=== PATIENT | female | born 1990 | race Caucasian/White ===

== ENCOUNTER → 2017-06-05 10:18 | Outpatient (CLI) | payer OTHER, SELFPAY | PROVIDERS: Visit Provider Obstetrics & Gynecology | DX: D75.89 Other specified diseases of blood and blood-forming organs (principal); R00.0 Tachycardia, unspecified | CPT/HCPCS: 36415; 83090 ==

== ENCOUNTER → 2017-07-17 10:17 | Outpatient (CLI) | payer OTHER, SELFPAY ==
[2017-07-17 12:59] LABS: Group B Strep DNA By PCR POSITIVE (Negative); Probe Check PASS
== END ==
PROVIDERS: Visit Provider Obstetrics & Gynecology
DX: Z36.85 Encounter for antenatal screening for Streptococcus B (principal)
CPT/HCPCS: 87653

== ENCOUNTER 2017-07-25 05:10 | Inpatient (IN) | payer SELFPAY ==
[2017-07-25] VITALS (21 sets, daily range): BP systolic 110–137; BP diastolic 66–92; PULSE 76–95; RESP 14–24; TEMP 36–37.3; O2SAT 95–99; BMI 23.1
[2017-07-25] MEDS: Lactated Ringers 1,000 ML 999 ML IV (05:35)
[2017-07-25 06:24] LABS: International Normalized Ratio 0.9; Prothrombin Time (Protime)PT. 12.5 SECONDS (11.7-14.9)
[2017-07-25 06:25] LABS: Partial Thromboplast Time 27.5 Seconds (24.1-36.2)
[2017-07-25 06:27] LABS: Absolute Lymphocyte Count 1.84 X10^3/ul (0.83-4.51); Absolute Neutrophil Count 8.3 X10^3/uL (2.0-7.7); Basophil# 0.01 X10^3/uL; Basophil% 0.1 % (0-1); Eosinophil# 0.18 X10^3/uL; Eosinophils% 1.6 % (0-5); Hematocrit 40.3 % (37-47); Hemoglobin 13.8 g/dl (12.0-15.0); Lymphocyte # 1.84 X10^3/ul (4.0); Lymphocyte % 16.5 % (19-41); Mean Corp Hgb Conc 34.2 g/gl (32-36); Mean Corpuscular Hgb 34.6 pg (27.0-32.0); Monocyte# 0.78 X10^3/uL; Neutrophil # 8.32 X10^3/uL (2.7-7.7); Neutrophil % 74.4 % (47-70); Platelet Count 190 K/mm3 (150-450); RBC Distribution Width CV 12.9 % (11.6-14.6); Red Blood Count 3.99 M/mm3 (4.2-5.4); White Blood Count 11.2 K/mm3 (4.4-11.0)
[2017-07-25] MEDS: Lactated Ringers 1,000 ML 150 ML IV (06:30)
[2017-07-25 06:50] LABS: POSITIVE COUNT NO; POSITIVE DIFFERENTIAL NO; POSITIVE MORPHOLOGY NO
[2017-07-25] MEDS: Cefazolin 2 GM in 0.9% Normal Saline 100 ML IV (07:02)
[2017-07-25] MEDS: Oxytocin 30 units/NS 500 ml 30 UNITS/500 ML IV.SOLN 167 UNITS IV (07:18)
--- NOTE | 2017-07-25 08:01 | PLAC_PTH ---
PATIENT: WILL BOURGEOIS LOC: [facility] U#:[id number] AGE/SX: 26/F ROOM: [facility] RE07/25/[address]: Dr. Marianela Hoyos MD : 1990 BED: 1 DIS: 07/28/2017 SPEC #: [id number] RECD: 07/25/17 09:23 STATUS: JOHN TANGELA #: [id number] ROSANNA: 07/25/17 08:[address]: Marianela Brandt DEPT: SURGICAL PATHOLOGY RECD BY: Paul German ENTERED: 07/25/17 10:43 SP TYPE: PLACENTA OTHR DR: No Primary Care Phys Tissues: Placenta, NOS Procedures: Surgery Specimen Level V HEADER OPERATION: Primary section PRE-OP DIAGNOSIS: Breech, SGA, ? dolichocephaly TISSUE SUBMITTED: Placenta MICROSCOPIC DIAGNOSIS Placenta: Placental disc - third trimester placenta (445 gm). - Focal area of increased intervillous and perivillous fibrin deposition. Membranes - no pathologic diagnosis. Umbilical cord - three blood vessels and no pathologic diagnosis. SJ:frandy 07/27/17 MICROSCOPIC DESCRIPTION Slides are reviewed. GROSS DESCRIPTION SPECIMEN: PLACENTA / CLINICAL INFORMATION: A. Weight: 2.655 kg B. Gestational Age: 38 weeks C. Sex: Female PLACENTAL WEIGHT (POST FIXATION): 445 gm PLACENTAL DIMENSIONS: 16 x 15 x 3 cm PLACENTAL SHAPE: Usual ovoid PLACENTAL WEIGHT FOR GESTATIONAL AGE: Within 10-99th percentile MEMBRANES - Present A. Insertion: Marginal B. Site of rupture from edge: At edge of placental disc C. Color of membrane: Valente-barnes D. Abnormalities: None UMBILICAL CORD - Present A. Color: Valente-barnes B. Insertion: Eccentric C. Length: 38 cm D. Diameter: 1.5 cm E. Number of vessels: Three F. Abnormalities: None PLACENTAL DISC - Present A. Color of surface: Valente-barnes B. surface abnormalities: None C. Maternal cotyledons: Intact with minimal tears D. Attached retro placental clot: No clot E. Cut surface: Dark red and spongy F. Lesions: None G. Separate clot: Absent SECTIONS SUBMITTED: 1. Membrane roll and umbilical cord ( end notched) 2. Placental disc, and maternal surfaces 3. Placental disc, and maternal surfaces 4. Placental disc, and maternal surfaces AM:frandy 07/26/17 TC:5 CPT: 05180
--- NOTE | 2017-07-25 08:08 | PCM.IMED.CSR ---
K-Vrueuzt-Eyzgubwfr PostOp Date of Procedure: 07/25/17 Primary Surgeon/Physician: TERRANCE Ruiz Assistant: Andriy Mcfarland Pre-op Diagnosis: Breech Post-Op Diagnosis: Breech Surgery/Procedure Performed: Primary low transverse Section Description of Surgical Findings:: Normal tubes bilaterally, normal uterus Estimated Blood Loss: 500 mL Specimens Removed: Placenta Drain: Tellez to straight drain Type of Anesthesia: Spinal - Admit VTE Documentation VTE Present on Admission: No VTE Mechan Device Prophylaxis: SCD's VTE Pharm Prophylaxis ordered?: No
--- NOTE | 2017-07-25 08:11 | PCM.OB.CSR ---
- Problem List (1) delivery delivered Status: Acute Delivery Classification: Scheduled Final YVROSE: 08/05/17 Final YVROSE Source: US <20 weeks Gestational age: 38 Weeks and 3 Days Indications: 26-year-old 1 at 38-3/7 weeks gestational age with oligohydramnios, breech presentation and IUGR. She was counseled regarding management options and was on candidate for external cephalic version this opted to proceed with primary section. Risks, benefits, indications of procedure were reviewed at length. Informed consent was obtained. Indications for : Breech Description of Procedure: Normal tubes bilaterally, normal uterus Procedure: The patient was taken to the operating room and spinal analgesia was administered. She is placed in a dorsal supine position with left lateral tilt. The perineum and abdomen were prepped and draped in sterile fashion. And the spinal was found to be adequate. A Pfannenstiel incision was made using a scalpel and brought down to incise the subcutaneous tissue and rectus fascia at the midline. Subcutaneous tissue was bluntly dissected off the fascia laterally. The fascial incision was dissected laterally and cephalad using curved Albright scissors. The superior leaflet of the rectus fascia was grasped using Julieta clamps and bluntly dissected and sharply dissected from the underlying rectus muscle. In a similar fashion the inferior rectus fascia was dissected from the underlying muscle. The rectus muscles were bluntly at the midline. The peritoneum was identified and entered bluntly. The bladder blade was placed into the abdomen and the vesicouterine peritoneal fold identified. The fold was incised and a bladder flap created. Bladder blade was then repositioned to the abdomen. A low transverse hysterotomy was made using the [Metzenbaum scissors] to level of the membranes. The hysterotomy was extended bluntly cephalad and caudad. The membranes were then ruptured revealing clear fluid. The breech was elevated and brought to the level of the hysterotomy. The infant was delivered to the level of the shoulders using gentle bidirectional rotation. The right than left upper extremities were swept through the hysterotomy. The head delivered spontaneously and a nuchal cord was spontaneously reduced delivery. The cord was doubly clamped and cut after 30 seconds. The was passed to awaiting [nursery personnel]. The placenta was [expressed] from the uterus and appeared intact on inspection. The uterus was cleared of debris. The hysterotomy was then repaired using 0 Vicryl running lock suture. A second imbricating layer was also placed for additional hemostasis. Jayme was placed along denuded left broad ligament peritoneum with good hemostasis. The bladder blade was removed. The anterior cul-de-sac was cleared of debris. The peritoneum and rectus muscles were reapproximated using 2-0 Vicryl running suture. The rectus fascia was closed using 0 Vicryl running suture. The subcutaneous tissue was sponge irrigated and small capillary bleeding controlled using the Bovie device. The subcutaneous tissue was reapproximated using 2-0 Vicryl. The skin was closed using 4-0 Monocryl subcuticularly by the MANAGER SOLUTION under my supervision.. This was followed by Cavilon and a Mepilex occlusive dressing was placed over the incision. The fundus was firm. The patient was then transferred to the recovery room without complication. Sponge, instrument, and needle counts were correct ?2. Amniotic Membrane Rupture Type: Artificial Amniotic Fluid Description: Clear Placenta Disposition: Sent to Pathology Specimen(s) sent to pathology: Placenta Drain: Tellez to straight drain Fluids Replaced: 1500 ml Cord Entanglement: Around neck x 1, loose Nuchal Cord Compression: Without compression Cord Vessel Description: 3 Vessels Esitmated Blood Loss (ml): 500 Gender: Female (1 minute): 8 (5 minute): 9 Delayed cord clamping: Yes Pre-op Antibiotic Given: Ancef 2 grams IV x1 Pt instructed on risks of surgery: Bleeding, Anesthesia Risks, Infection, Injury to surrounding structure(s) including bowel and bladder - Admit VTE Documentation VTE Present on Admission: No VTE Mechan Device Prophylaxis: SCD's VTE Pharm Prophylaxis ordered?: No
--- NOTE | 2017-07-25 08:28 | DCINST_ITS ---
Discharge Diet: No Restrictions Discharge Activity: Return to Normal Activity, May not drive while taking narcotic pain medications., May Shower May resume sexual activity in: 6 weeks Lifting Restrictions: 10 lb Call your doctor if your incision/area has: Continuous Slow Oozing, Sudden Increased Bleeding, Increased Pain/ Swelling, Increased Redness, Foul Smelling Discharge Call your doctor if you observe: Fever of 101 or Higher, Inability to urinate, Inability to have a bowel movement, Chest pain Suture Line Care: Avoid Pulling/Pushing Cleanse incision/area with: Soap & Water Additional Instructions: If you experience any of the following, contact your healthcare provider. * Bleeding that soaks a pad every hour for 2 hours * Fever 100.4 or higher * Unrelieved incision or abdominal pain * Swelling, redness, discharge or bleeding from your incision or episiotomy site * Your incision begins to separate * Problems urinating (including inability to urinate or burning while urinating) . * Visual changes * Severe headache * Flu-like symptoms * Pain or redness in one of both of your breasts * Pain, warmth, tenderness or swelling in your legs, especially the calf area * Frequent nausea and vomiting * Symptoms of depression or anxiety If you experience any of the following, call 911 or go to the nearest Emergency Room. * Chest pain * Problems breathing * Seizure activity * Partial or complete paralysis of a body part, slurred speech, weakness or drooping of the face, or a sudden inability to walk or hold your balance Allergies/Adverse Reactions: Allergies No Known Allergies Allergy (Verified 07/25/17 05:51) Medications to take at Discharge Docusate Sodium [Colace] 100 mg PO BID PRN PRN #60 cap 07/25/17 Loratadine [Claritin] 10 mg PO BID 07/25/17 Naproxen 250 mg PO BID PRN #30 tab 07/25/17 The following prescriptions were given: Docusate Sodium [Colace] 100 mg PO BID PRN PRN #60 cap PRN Reason: Constipation Naproxen 250 mg PO BID PRN #30 tab PRN Reason: Pain Follow-Up: Call to make an appointment with your doctor for an incision check in 1-2 weeks. You will also need a 6 week post- follow up appointment. Please Follow Up With: Martinez-Romain,Summer, MD - incision check When: 1-2 weeks Please Follow Up With: Marianela Dos Santos MD - visit When: 6 weeks Primary Care Physician: Care Physician,No Primary [Primary Care Provider] -
[2017-07-25] MEDS: Lactated Ringers 1,000 ML 100 ML IV ×2 (08:40→18:17)
[2017-07-25 09:26] LABS: Pathology Specimen OB SEE PATHOLOGY REPORT
[2017-07-25] MEDS: Ketorolac 30 MG/ML Syringe IV ×2 (12:23→18:08)
[2017-07-26] VITALS (8 sets, daily range): BP systolic 95–116; BP diastolic 54–79; PULSE 75–104; RESP 16–18; TEMP 36.5–37.2; O2SAT 96–99
[2017-07-26] MEDS: Ketorolac 30 MG/ML Syringe IV ×4 (00:04→18:34)
[2017-07-26] MEDS: 0.9% Saline Lock 10 ML Syringe IV ×4 (00:05→18:34)
--- NOTE | 2017-07-26 04:07 | NURSING ---
At 0005, NC O2 decreased to 1L, SaO2 97%. At 0406, NC O2 discontinued. SaO2 96% on Room air.
--- NOTE | 2017-07-26 04:12 | NURSING ---
Patient complaining about swelling in feet, states that feet feel somewhat tingly. 1+ edema noted without pitting. Pt states they are slightly painful and feel better when she tries to move them around. Encouraged patient to continue PO fluids and mention this to doctor during morning rounds.
[2017-07-26 04:35] LABS: Hematocrit 34.3 % (37-47); Mean Corpuscular Hgb 35.9 pg (27.0-32.0); Mean Corpuscular Volume 102.7 fL (81-99); Mean Platelet Vol. 9.4 fl (6.2-12.0); Platelet Count 161 K/mm3 (150-450); RBC Distribution Width CV 12.7 % (11.6-14.6); RBC Distribution Width SD 46.2 fl (35.1-43.9); Red Blood Count 3.34 M/mm3 (4.2-5.4); Scan Indicated on CBC? Y/N NO; White Blood Count 13.8 K/mm3 (4.4-11.0)
--- NOTE | 2017-07-26 06:25 | NURSING ---
Patient up to bathroom. Tellez catheter discontinued and patient performed malu care. Patient then to rocking chair. Pt tolerated activity well.
--- NOTE | 2017-07-26 08:30 | PCM.PN.OB ---
Patient Problems: Active and Suspected Problems (Last Reviewed 07/28/17 @ 07:24 by Marianela Dos Santos MD) delivery delivered (Acute) Subjective: She is sore today, but has been out of bed. Passing flatus, no bowel movement yet. Denies nausea or vomiting. Objective: AVSS - Physical Exam General: Alert, Oriented x3, Cooperative, No apparent distress HEENT: Atraumatic, Normocephalic Lungs: Clear to auscultation, Normal air movement Cardiovascular: Regular rate, Regular Rhythm, Normal S1, Normal S2 Abdomen: Bowel Sounds Present, Soft, Non Tender, Non-Distended, - - Fundus firm and nontender at umbilicus, incisional dressing dry and intact with 2 small islands of saturation approximatlely 1cm each Extremities: No edema, No Calf Tenderness Neurological: Neuro grossly intact Psych/Mental Status: Normal Affect, Appropriate, Alert and oriented to time, place, person, mood and affect Vital Signs Temp Pulse Resp BP Pulse Ox 97.9 F 74 16 114/58 L 96 07/28/17 01:30 07/28/17 01:30 07/28/17 01:30 07/28/17 01:30 07/27/17 19:30 Oxygen Flow Rate (L/min) 1 Oxygen Delivery Method Room Air Weight: 61.241 kg Body Mass Index (BMI) 23.1 Intake and Output for Last 24 Hours 07/26/17 07/27/17 07/28/17 23:59 23:59 23:59 Intake Total 1409 / 1409 Output Total 2300 / 2300 Balance -891 / -891 Medical Necessity - Tobacco Use Smoking Status: Never smoker Assessment/Plan Active and Suspected Problems (Last Reviewed 07/28/17 @ 07:24 by Marianela Dos Santos MD) delivery delivered (Acute) 26yo POD#1 s/p PLTCS doing well. -Rh positive -Routine postop care -
[2017-07-26] MEDS: oxyCODONE 5 MG Tablet PO (16:31)
[2017-07-26] MEDS: Senna/Docusate Sodium 1 Tablet PO (16:31)
[2017-07-27] MEDS: Ketorolac 30 MG/ML Syringe IV ×2 (00:15→06:03)
[2017-07-27] MEDS: 0.9% Saline Lock 10 ML Syringe IV ×2 (00:15→06:03)
[2017-07-27 02:25] VITALS: BP 99/56; PULSE 83; RESP 16; TEMP 36.9; O2SAT 99
--- NOTE | 2017-07-27 09:03 | PCM.PN.OB ---
Patient Problems: Active and Suspected Problems (Last Updated 07/25/17 @ 08:06 by Marianela Dos Santos MD) delivery delivered (Acute) Subjective: No issues overnight. She is sore. Denies heavy lochia. She is out of bed, no bowel movement yet. +flatus. Objective: AVSS - Physical Exam General: Alert, Oriented x3, Cooperative, No apparent distress HEENT: Atraumatic, Normocephalic Lungs: Clear to auscultation, Normal air movement Cardiovascular: Regular rate, Regular Rhythm Abdomen: Soft, Non Tender, Non-Distended Extremities: No edema, No Calf Tenderness Neurological: Neuro grossly intact Psych/Mental Status: Normal Affect, Appropriate, Alert and oriented to time, place, person, mood and affect Vital Signs Temp Pulse Resp BP Pulse Ox 98.4 F 83 16 99/56 L 99 07/27/17 02:25 07/27/17 02:25 07/27/17 02:25 07/27/17 02:25 07/27/17 02:25 Oxygen Flow Rate (L/min) 1 Oxygen Delivery Method Room Air Weight: 61.241 kg Body Mass Index (BMI) 23.1 Intake and Output for Last 24 Hours 07/25/17 07/26/17 07/27/17 23:59 23:59 23:59 Intake Total 3540 / 3540 1409 / 1409 Output Total 1725 / 1725 2300 / 2300 Balance 1815 / 1815 -891 / -891 Medical Necessity - Tobacco Use Smoking Status: Smoker, status unknown Assessment/Plan Active and Suspected Problems (Last Updated 07/25/17 @ 08:06 by Marianela Dos Santos MD) delivery delivered (Acute) 26yo POD#2 s/p PLTCS doing well. -Rh positive -Routine postop care -Consider d/c home later today
[2017-07-27] MEDS: Senna/Docusate Sodium 1 Tablet PO (09:17)
[2017-07-27] MEDS: oxyCODONE 5 MG Tablet PO ×2 (09:17→13:42)
[2017-07-27 09:36] VITALS: BP 117/75; PULSE 80; RESP 14; TEMP 37.7; O2SAT 97
[2017-07-27 13:42] VITALS: BP 116/78; PULSE 92; RESP 16; TEMP 37.6; O2SAT 98
[2017-07-27] MEDS: Naproxen 250 MG Tablet PO (17:54)
[2017-07-27 19:30] VITALS: BP 112/57; PULSE 73; RESP 16; TEMP 36.9; O2SAT 96
[2017-07-28 01:30] VITALS: BP 114/58; PULSE 74; RESP 16; TEMP 36.6
[2017-07-28] MEDS: Naproxen 250 MG Tablet PO (01:47)
[2017-07-28] MEDS: oxyCODONE 5 MG Tablet PO (06:25)
--- NOTE | 2017-07-28 07:25 | PCM.PN.OB ---
Patient Problems: Active and Suspected Problems (Last Reviewed 07/28/17 @ 07:24 by Marianela Dos Santos MD) delivery delivered (Acute) Subjective: Pain is minimal. She has no complaints this morning and looks forward to going home. Objective: AVSS - Physical Exam General: Alert, Oriented x3, Cooperative, No apparent distress HEENT: Atraumatic, Normocephalic Lungs: Clear to auscultation, Normal air movement Cardiovascular: Regular rate, Regular Rhythm Abdomen: Soft, Non Tender, Non-Distended, - - Fundus firm and nontender, incision c/d/i and nontender Extremities: No edema, No Calf Tenderness Neurological: Neuro grossly intact Psych/Mental Status: Normal Affect, Appropriate, Alert and oriented to time, place, person, mood and affect Vital Signs Temp Pulse Resp BP Pulse Ox 97.9 F 74 16 114/58 L 96 07/28/17 01:30 07/28/17 01:30 07/28/17 01:30 07/28/17 01:30 07/27/17 19:30 Oxygen Flow Rate (L/min) 1 Oxygen Delivery Method Room Air Weight: 61.241 kg Body Mass Index (BMI) 23.1 Intake and Output for Last 24 Hours 07/26/17 07/27/17 07/28/17 23:59 23:59 23:59 Intake Total 1409 / 1409 Output Total 2300 / 2300 Balance -891 / -891 Medical Necessity - Tobacco Use Smoking Status: Never smoker Assessment/Plan Active and Suspected Problems (Last Reviewed 07/28/17 @ 07:24 by Marianela Dos Santos MD) delivery delivered (Acute) 26yo POD#3 s/p PLTCS doing well. -Rh positive -Routine postop care -d/c home today
[2017-07-28 08:50] VITALS: BP 115/81; PULSE 94; RESP 14; TEMP 36.8; O2SAT 97
== END 2017-07-28 11:10 | disposition home or self-care (01) | DRG 765 ==
PROVIDERS: Admitting Provider Obstetrics & Gynecology; Visit Provider Obstetrics & Gynecology
DX: O32.1XX0 Maternal care for breech presentation, not applicable or unspecified (principal); O41.03X0 Oligohydramnios, third trimester, not applicable or unspecified; O98.82 Other maternal infectious and parasitic diseases complicating childbirth; O36.5930 Maternal care for other known or suspected poor fetal growth, third trimester, not applicable or unspecified; Z3A.38 38 weeks gestation of pregnancy; Z37.0 Single live birth; B95.1 Streptococcus, group B, as the cause of diseases classified elsewhere; O69.81X0 Labor and delivery complicated by cord around neck, without compression, not applicable or unspecified; O75.89 Other specified complications of labor and delivery; L50.1 Idiopathic urticaria
CPT/HCPCS: 85025; 85027; 85610; 85730; 86850; 86900; 88307; 99218; J7120; A4216; G0378; J2405

== ENCOUNTER → 2019-05-06 16:00 | Outpatient (CLI) | payer OTHER, SELFPAY ==
[2017-07-25 05:47] VITALS: BMI 23.1
== END ==
PROVIDERS: Visit Provider Advanced Practice Midwife
DX: Z12.4 Encounter for screening for malignant neoplasm of cervix (principal)

== ENCOUNTER → 2019-05-14 10:33 | Outpatient (CLI) | payer OTHER, SELFPAY ==
[2017-07-25 05:47] VITALS: BMI 23.1
[2019-05-14 14:14] LABS: Absolute Lymphocyte Count 0.92 X10^3/uL (0.83-4.51); Absolute Neutrophil Count 6.1 X10^3/uL (2.0-7.7); Basophil# 0.02 X10^3/uL; Basophil% 0.3 % (0-1); Eosinophil# 0.09 X10^3/uL; Eosinophils% 1.2 % (0-5); Hematocrit 43.6 % (37-47); Hemoglobin 14.9 g/dL (12.0-15.0); Lymphocyte # 0.92 X10^3/ul (4.0); Lymphocyte % 12.2 % (19-41); Mean Corp Hgb Conc 34.2 g/dL (32-36); Mean Corpuscular Hgb 33.8 pg (27.0-32.0); Mean Corpuscular Volume 98.9 fL (81-99); Mean Platelet Vol. 9.8 fl (6.2-12.0); Monocyte# 0.44 X10^3/uL; Monocyte% 5.8 % (0-10); NRBC Flagged by Analyzer 0 % (0-5); Neutrophil # 6.07 X10^3/uL (2.7-7.7); Neutrophil % 80.2 % (47-70); Platelet Count 258 K/mm3 (150-450); RBC Distribution Width CV 13.2 % (11.6-14.6); RBC Distribution Width SD 47.4 fl (35.1-43.9); Red Blood Count 4.41 M/mm3 (4.2-5.4); White Blood Count 7.6 K/mm3 (4.4-11.0)
[2019-05-14 14:30] LABS: Color, Urine Yellow (Yellow); Glucose, Dipstick Normal (Normal); Ketone-Dipstick Negative (Negative); Leukocyte Esterase-Dipstick Negative /ul (Negative); Nitrite-Dipstick Negative (Negative); Occult Blood-Urine Negative /ul (Negative); Protein-Dipstick Negative (Negative); Specific Gravity, Urine 1.005 (1.002-1.030); Urine Bilirubin Dipstick Negative (Negative); Urine Clarity Sl. Cloudy (Clear); Urine Urobilinogen Normal (Normal)
[2019-05-14 14:58] LABS: HIV - WCH Non-Reactive (Nonreactive); Hepatitis B Surface Antigen Non-Reactive (Nonreactive); Hepatitis C Antibody Non-Reactive (Nonreactive); Rubella IgG 135.3 IU/mL
[2019-05-15 01:52] LABS: Prenatal RPR NONREACTIVE (NONREACTIVE)
== END ==
LOC: WOBLAB 10:36
PROVIDERS: Visit Provider Obstetrics & Gynecology
DX: Z34.82 Encounter for supervision of other normal pregnancy, second trimester (principal)
CPT/HCPCS: 36415; 81002; 82306; 84443; 85025; 86703; 86762; 86803; 87340

== ENCOUNTER → 2019-08-06 | Outpatient (CLI) | payer OTHER, SELFPAY ==
[2017-07-25 05:47] VITALS: BMI 23.1
[2019-08-06 18:49] LABS: Hemoglobin 12.9 g/dL (12.0-15.0); Mean Corp Hgb Conc 33.9 g/dL (32-36); Mean Corpuscular Hgb 33.9 pg (27.0-32.0); Mean Platelet Vol. 9.6 fl (6.2-12.0); Platelet Count 213 K/mm3 (150-450); RBC Distribution Width CV 12.4 % (11.6-14.6); RBC Distribution Width SD 45.4 fl (35.1-43.9); White Blood Count 9.7 K/mm3 (4.4-11.0)
[2019-08-06 18:55] LABS: Glucose Challenge Gest 1H 50g 88 mg/dL (70-140)
== END | disposition home or self-care (01) ==
PROVIDERS: Referring Provider Obstetrics & Gynecology; Visit Provider Obstetrics & Gynecology
DX: Z34.82 Encounter for supervision of other normal pregnancy, second trimester (principal)
CPT/HCPCS: 82950; 85027

== ENCOUNTER → 2019-10-15 | Outpatient (CLI) | payer OTHER, SELFPAY ==
[2017-07-25 05:47] VITALS: BMI 23.1
== END | disposition home or self-care (01) ==
PROVIDERS: Visit Provider Obstetrics & Gynecology
DX: Z36.85 Encounter for antenatal screening for Streptococcus B (principal)
CPT/HCPCS: 87077; 87081

== ENCOUNTER 2019-10-23 09:35 | Inpatient (IN) | payer SELFPAY, OTHER ==
[2017-07-25 05:47] VITALS: BMI 23.1
[2019-10-23] VITALS (20 sets, daily range): BP systolic 97–123; BP diastolic 62–80; PULSE 51–77; RESP 16–18; TEMP 36.1–37.6; O2SAT 96–100; BMI 22.8
--- NOTE | 2019-10-23 10:21 | PCM.HP.OB ---
- Problem List (1) 39 weeks gestation of Status: Acute (2) Request for sterilization Status: Acute (3) COVID-19 affecting in third trimester Status: Acute History Date of Admission: 10/23/19 Final YVROSE: 10/30/19 Final YVROSE Source: US <20 weeks Gestational age: 39 Weeks and 0 Days History of this : This is a 28 year-old, G [2], P [1], at 39 weeks gestational age presents for scheduled with tubal sterilization. She tested positive for COVID19 and last had symptoms on 10/18. She has no complaints this morning. Medical History: Medical History (Last Updated 10/23/19 @ 01:[address] Marianela Hoyos MD) Chronic idiopathic urticaria L50.1 POTS (postural orthostatic tachycardia syndrome) R00.0, I95.1 Surgical History: Surgical History (Last Updated 10/23/19 @ 01:[address] Marianela Hoyos MD) Previous section Z98.891 2017, breech Allergies No Known Allergies Allergy (Verified 07/25/17 05:51) Home Medications: Home Medications Loratadine [Claritin] 10 mg PO BID 07/25/17 Smoking Status: Never smoker Alcohol: None Number of Fetus(es): 1 NST - FHR Rate Baby A Baseline: 135 History Past Pregnancies: Past Pregnancies Delivery Date Name GA/ Weeks Outcome Route Wt Sex Labor Length Anesthesia Delivery Location Provider FOB 07/2017 [facility] 38 Breech, [place] [id number] [place] Labs: [facility] Labs & Results 10/23/19 10/23/19 10:30 10:30 WBC 6.2 RBC 4.11 L Hgb 12.9 Hct 40.2 MCV 97.8 MCH 31.4 MCHC 32.1 RDW Std Deviation 43.5 RDW Coeff of Daniele 12.1 Plt Count 208 MPV 9.6 Immature Gran % (Auto) 0.800 Neut % (Auto) 68.7 Lymph % (Auto) 22.8 [place] % (Auto) 7.3 Eos % (Auto) 0.2 Baso % (Auto) 0.2 Absolute Neuts (auto) 4.3 Absolute Lymphs (auto) 1.41 Nucleated RBC % 0 Blood Type Pending Antibody Screen Pending Course Did the patient receive Yes care? Labs Blood Type: O RH: POSITIVE RPR/VDRL/Syphilis Nonreactive Rubella status Immune HbSAg Negative Date Done: 05/14/19 Chlamydia Not Done Gonorrhea Not Done HIV/AIDS Non-Reactive Current Obstetrical History Gestational Diabetes No Incompetent Cervix No Infertility No IUGR No Macrosomia No Hypertension/Pre-eclampsia No Placenta Previa/Abruption No PTL/PROM No Uterine anomaly No Oligohydramnios No Polyhydramnios No Multiple gestation No Past Medical History Asthma No Diabetes No Hypertension No Heart disease No Mitral valve prolapse No Neurologic/Seizure disorder/ No Migraines Kidney disease No Liver disease No Varicosities No Clotting disorders/Hx of DVT No Thyroid Dysfunction No Other medical diseases No Psychiatric disorders No Major trauma No Abnormal PAP smear No Sleep apnea No Mammogram in the last 2 years No Enter DETAILS of medical postural orthopedic hypertension history Social History Marital Status: Alleged father Rj Ashton Hx Smoking No Smoking Status Never smoker Expected Infant Delivery Method: Scheduled Section Number of Visits: 10 Review of Systems Constitutional: Denies: Chills, Fever Cardiovascular: Denies: Chest Pain, Chest Tightness, Edema Respiratory: Denies: Cough, Shortness of Breath Gastrointestinal: Denies: Abdominal Pain, Nausea, Vomiting Physical Exam Vitals: avss General: Alert, Oriented x3, Cooperative, No apparent distress HEENT: Atraumatic, Normocephalic Cardiovascular: Regular rate, Regular Rhythm, Normal S1, Normal S2 Lungs: Clear to auscultation, Normal air movement Abdomen: Soft, Non Tender, Non-Distended Extremities:: No edema Neurological: Neuro grossly intact Presentation: Cephalic Assessment/Plan All Active Problems (Last Updated 10/23/19 @ 01:[address] Marianela Hoyos MD) delivery delivered (Acute) 39 weeks gestation of (Acute) Request for sterilization (Acute) COVID-19 affecting in third trimester (Acute) This is a 28 year-old, G [2], P [1], at 39 weeks gestational age, COVID19 positive, hx prior section. -Pt sx resolved >3 days. -Proceed with C/S as scheduled with BTL. -Pt desires rooming in with Procedure Criteria Procedure Type: Elective - Patient understands may be exposed to COVID19 COVID Risk Discussion: The surgeon/proceduralist and patient have discussed in detail the risk of exposure to and/or potential harm posed by the COVID-19 virus with having a surgery/procedure at this time versus the risk of delaying the surgery/procedure. It is not possible to know either the risk of delaying the surgery or procedure or chance of getting an infection with perfect accuracy, but a joint decision was made between the patient and the surgeon/proceduralist to proceed at this time with the scheduled surgery/procedure as indicated on the consent form.
[2019-10-23] MEDS: Lactated Ringers 1,000 ML 999 ML IV (10:30)
[2019-10-23 10:58] LABS: Absolute Lymphocyte Count 1.41 X10^3/uL (0.83-4.51); Absolute Neutrophil Count 4.3 X10^3/uL (2.0-7.7); Basophil# 0.01 X10^3/uL; Basophil% 0.2 % (0-1); Eosinophil# 0.01 X10^3/uL; Eosinophils% 0.2 % (0-5); Hematocrit 40.2 % (37-47); Hemoglobin 12.9 g/dL (12.0-15.0); Lymphocyte # 1.41 X10^3/ul (4.0); Lymphocyte % 22.8 % (19-41); Mean Corp Hgb Conc 32.1 g/dL (32-36); Mean Corpuscular Hgb 31.4 pg (27.0-32.0); Mean Corpuscular Volume 97.8 fL (81-99); Mean Platelet Vol. 9.6 fl (6.2-12.0); Monocyte# 0.45 X10^3/uL; Monocyte% 7.3 % (0-10); NRBC Flagged by Analyzer 0 % (0-5); Neutrophil # 4.25 X10^3/uL (2.7-7.7); Neutrophil % 68.7 % (47-70); Platelet Count 208 K/mm3 (150-450); RBC Distribution Width CV 12.1 % (11.6-14.6); RBC Distribution Width SD 43.5 fl (35.1-43.9); Red Blood Count 4.11 M/mm3 (4.2-5.4); White Blood Count 6.2 K/mm3 (4.4-11.0)
[2019-10-23] MEDS: Acetaminophen 500 MG Tablet 1000 MG PO ×2 (11:23→20:21)
[2019-10-23] MEDS: Lactated Ringers 1,000 ML 150 ML IV ×2 (11:28→14:00)
[2019-10-23] MEDS: Cefazolin 2 GM in 0.9% Normal Saline 100 ML IV (12:13)
--- NOTE | 2019-10-23 12:44 | PLAC_PTH ---
PATIENT: WILL BOURGEOIS LOC: [facility] U#:[id number] AGE/SX: 28/F ROOM: [facility] RE10/23/[address]: Dr. Marianela Hoyos MD : 1990 BED: 1 DIS: 10/24/2019 SPEC #: [id number] RECD: 10/23/19 21:23 STATUS: JOHN TANGELA #: [id number] ROSANNA: 10/23/19 12:[address]: Marianela Brandt DEPT: SURGICAL PATHOLOGY RECD BY: Shyanne Stevens ENTERED: 10/27/19 09:32 SP TYPE: PLACENTA OTHR DR: No Primary Care Phys Tissues: A - Placenta, NOS B - Fallopian tube Procedures: Surgery Specimen Level II Surgery Specimen Level V HEADER OPERATION: Repeat section, tubal ligation PRE-OP DIAGNOSIS: Breech, sterilization TISSUE SUBMITTED: A - Placenta, B - Fallopian tubes, suture in right tube MICROSCOPIC DIAGNOSIS A. Placenta: Placental disc - third trimester placenta (442 gm). Membranes - no pathologic diagnosis. Umbilical cord - three blood vessels and no pathologic diagnosis. B. Bilateral fallopian tubes, salpingectomy: Bilateral fallopian tubes including fimbrial ends, no pathologic diagnosis. SJ:frandy 10/28/19 MICROSCOPIC DESCRIPTION Slides are reviewed. GROSS DESCRIPTION A - SPECIMEN: PLACENTA / CLINICAL INFORMATION: A. Weight: 3.065 kg B. Gestational Age: 39 weeks C. Sex: Male PLACENTAL WEIGHT (POST FIXATION): 442 gm PLACENTAL DIMENSIONS: 19.5 x 16 cm. The placenta shows variable thickness from 1 to 3 cm. PLACENTAL SHAPE: Usual ovoid PLACENTAL WEIGHT FOR GESTATIONAL AGE: Within 10-99th percentile MEMBRANES - Present A. Insertion: Marginal B. Site of rupture from edge: At edge of placental disc C. Color of membrane: Valente, mucoidy D. Abnormalities: None UMBILICAL CORD - Present A. Color: Valente-barnes B. Insertion: Central C. Length: 15 cm D. Diameter: 1 cm E. Number of vessels: Three F. Abnormalities: None PLACENTAL DISC - Present A. Color of surface: Valente-barnes B. surface abnormalities: None C. Maternal cotyledons: Intact with minimal tears D. Attached retro placental clot: No clot E. Cut surface: Dark red and spongy F. Lesions: None G. Separate clot: Absent SECTIONS SUBMITTED: 1. Membrane roll 2. Cord, maternal end 3. Cord, end 4. Placental disc, and maternal surfaces 5. Placental disc, and maternal surfaces 6. Placental disc, and maternal surfaces B - Received in fixative is one container labeled with the patient's name and designated bilateral fallopian tubes, suture in right tube. The specimen consists of bilateral fallopian tubes including fimbrial ends. The right fallopian tube is identified by a suture and measures 7.5 cm in length and up to 1 cm in diameter and the left fallopian tube measures 8.5 cm in length and 0.6 in diameter. Sections reveal unremarkable cut surfaces. [employer] sections are submitted in two cassettes as follows: 1 - right fallopian tube, 2 - left fallopian tube. / JESSICA:frandy 10/27/19 TC:4 CPT: 64007, 80744 x2
[2019-10-23] MEDS: Oxytocin 30 units/NS 500 ml 30 UNITS/500 ML IV.SOLN 167 UNITS IV (13:50)
[2019-10-23] MEDS: Ketorolac 30 MG/ML Syringe IV (17:52)
--- NOTE | 2019-10-23 18:54 | PCM.OPRPT ---
Problem List (1) 39 weeks gestation of Status: Acute (2) Request for sterilization Status: Acute (3) COVID-19 affecting in third trimester Status: Acute Delivery Classification: Scheduled Final YVROSE: 10/30/19 Final YVROSE Source: [place] <20 weeks Gestational age: 39 Weeks and 0 Days dairy cattle farm manager: Vita Sue Type of Anesthesia:: Spinal Date of Procedure: 10/23/19 Pre-Operative Diagnosis: 39 weeks gestational age. COVID-19 positivity. Prior section. Sterilization request Post-Operative Diagnosis: Same Indications: 28-year-old 2 para 1-0-0-1 presenting at 39 weeks gestational age for scheduled repeat section with bilateral salpingectomy for sterilization. Should of note she tested positive for COVID-19 1 week ago. She has been asymptomatic for at least 72 hours at this time. Procedural risks, benefits, indications and alternatives were reviewed. She declined trial of labor. Proceed as planned with scheduled section and tubal sterilization. Indications for : Repeat Elective , Desires elective sterilization Description of Procedure: The patient was taken to the operating room and spinal analgesia was administered. She is placed in a dorsal supine position with left lateral tilt. The perineum and abdomen were prepped and draped in sterile fashion. And the spinal was found to be adequate. A Pfannenstiel incision was made using a scalpel and brought down to incise the subcutaneous tissue and rectus fascia at the midline. Subcutaneous tissue was bluntly dissected off the fascia laterally. The fascial incision was dissected laterally and cephalad using curved Albright scissors. The superior leaflet of the rectus fascia was grasped using Julieta clamps and bluntly dissected and sharply dissected from the underlying rectus muscle. In a similar fashion the inferior rectus fascia was dissected from the underlying muscle. The rectus muscles were bluntly at the midline. The peritoneum was identified and entered [sharply]. The bladder blade was placed into the abdomen and the vesicouterine peritoneal fold identified. The fold was incised and a bladder flap created. Bladder blade was then repositioned to the abdomen. A low transverse hysterotomy was made using the [Metzenbaum scissors] to level of the membranes. The hysterotomy was extended bluntly cephalad and caudad. The membranes were then ruptured revealing clear fluid. The head was elevated and brought to the level of the hysterotomy and the delivered revealing vigorous [male] infant. The cord was doubly clamped and cut after 30 seconds. The infant was passed to awaiting [nursery personnel]. The placenta was [expressed] from the uterus and appeared intact on inspection. The uterus was exteriorized and cleared of debris. The hysterotomy was then repaired using 0 Vicryl running lock suture. A second imbricating layer was also placed for additional hemostasis. The right tubal fimbria was identified and salpingectomy performed by transecting the mesosalpinx using the LigaSure device and excising the tube at the uterine cornua. In similar fashion left salpingectomy was performed. The bladder blade was removed. Uterus and adnexa were returned to the abdomen. The anterior cul-de-sac was cleared of debris. The peritoneum and rectus muscles were reapproximated using 2-0 Vicryl running suture. The rectus fascia was closed using 0 Vicryl running suture. The subcutaneous tissue was sponge irrigated and small capillary bleeding controlled using the Bovie device. The subcutaneous tissue was reapproximated using 2-0 Vicryl. The skin was closed using 4-0 Monocryl subcuticularly by the TER[employer] WORKER APPRENTICE under my supervision. A Mepilex occlusive dressing was placed over the incision. The fundus was firm. The patient was then transferred to the recovery room without complication. Sponge, instrument, and needle counts were correct ?2. Amniotic Membrane Rupture Type: Spontaneous Amniotic Fluid Description: Clear Drain: Tellez to straight drain Cord Entanglement: Around neck x 1, loose Nuchal Cord Compression: Without compression Cord Vessel Description: 3 Vessels Esitmated Blood Loss (ml): 700 Gender: Male (1 minute): 8 (5 minute): 9 Delayed cord clamping: Yes Antibiotic Given: Ancef 2 grams IV x1 Pt instructed on risks of surgery: Bleeding, Anesthesia Risks, Infection, Need for Future C-Sections, Permanency, Failure Rate of 1 to 2%, Injury to surrounding structure(s) including bowel and bladder, Availability of other non-permanent control options Complications: None - Admit VTE Documentation VTE Present on Admission: No VTE Mechan Device Prophylaxis: SCD's VTE Pharm Prophylaxis ordered?: Yes
[2019-10-23 21:25] LABS: Pathology Specimen OB SEE PATHOLOGY REPORT
[2019-10-24] MEDS: Ketorolac 30 MG/ML Syringe IV ×4 (00:04→17:20)
[2019-10-24] MEDS: 0.9% Saline Lock 10 ML Syringe IV ×4 (00:05→17:21)
[2019-10-24 01:00] VITALS: RESP 18; O2SAT 99
[2019-10-24] MEDS: Heparin Injection (Vial) 5,000 UNIT/ML VIAL 5000 UNIT SC ×2 (01:29→10:03)
--- NOTE | 2019-10-24 03:10 | NURSING ---
Pt requested that bowers be left in for longer than 12 hours post op due to her having POTS and being tired. Pt wishes to have bowers out after she gets some sleep.
[2019-10-24 03:56] VITALS: BP 93/52; PULSE 64; RESP 18; TEMP 36.6; O2SAT 97
[2019-10-24] MEDS: Acetaminophen 500 MG Tablet 1000 MG PO ×2 (05:56→13:18)
[2019-10-24 06:11] LABS: Hematocrit 39.8 % (37-47); Hemoglobin 12.7 g/dL (12.0-15.0); Mean Corp Hgb Conc 31.9 g/dL (32-36); Mean Corpuscular Hgb 31.2 pg (27.0-32.0); Mean Corpuscular Volume 97.8 fL (81-99); Mean Platelet Vol. 9.8 fl (6.2-12.0); Platelet Count 198 K/mm3 (150-450); RBC Distribution Width CV 11.9 % (11.6-14.6); RBC Distribution Width SD 42.5 fl (35.1-43.9); Red Blood Count 4.07 M/mm3 (4.2-5.4); White Blood Count 12.3 K/mm3 (4.4-11.0)
[2019-10-24 07:00] VITALS: BP 104/60; PULSE 57; RESP 16; TEMP 36.8; O2SAT 97
--- NOTE | 2019-10-24 08:44 | PN.OBGYN_ITS ---
Subjective: No issues overnight. Pain controlled. Passing flatus. Denies heavy lochia, edema. Tolerates PO. Has not yet voided. Objective: AVSS - Physical Exam Vitals/I&O's: Vital Signs Temp Pulse Resp BP Pulse Ox 98.3 F 57 L 16 104/60 97 10/24/19 07:00 10/24/19 07:00 10/24/19 07:00 10/24/19 07:00 10/24/19 07:00 Oxygen Delivery Method Room Air Weight: 60.555 kg Body Mass Index (BMI) 22.8 Intake and Output for Last 24 Hours 10/22/19 10/23/19 10/24/19 23:59 23:59 23:59 Intake Total 3441.5 / 3441.5 125 / 125 Output Total 600 / 600 1100 / 1100 Balance 2841.5 / 2841.5 -975 / -975 General: Alert, Oriented x3, Cooperative, No apparent distress HEENT: Atraumatic, Normocephalic Lungs: Clear to auscultation, Normal air movement Cardiovascular: Regular rate, Regular Rhythm, Normal S1, Normal S2 Abdomen: Soft, Non Tender, Non-Distended, - - Fundus firm and nontender Extremities: No edema, No Calf Tenderness Neurological: Neuro grossly intact Psych/Mental Status: Normal Affect, Appropriate, Alert and oriented to time, place, person, mood and affect Laboratory Results 10/23/19 10:30: WBC 6.2, RBC 4.11 L, Hgb 12.9, Hct 40.2, MCV 97.8, MCH 31.4, MCHC 32.1, RDW Std Deviation 43.5, RDW Coeff of Daniele 12.1, Plt Count 208, MPV 9.6, Immature Gran % (Auto) 0.800, Neut % (Auto) 68.7, Lymph % (Auto) 22.8, [place] % (Auto) 7.3, Eos % (Auto) 0.2, Baso % (Auto) 0.2, Absolute Neuts (auto) 4.3, Absolute Lymphs (auto) 1.41, Nucleated RBC % 0 10/23/19 10:30: Blood Type O POSITIVE, Antibody Screen NEGATIVE 10/24/19 05:50: WBC 12.3 H, RBC 4.07 L, Hgb 12.7, Hct 39.8, MCV 97.8, MCH 31.2, MCHC 31.9 L, RDW Std Deviation 42.5, RDW Coeff of Daniele 11.9, Plt Count 198, MPV 9.8 Current Medications Acetaminophen (Tylenol) 1,000 mg PO Q8 [facility] Last Admin: 10/24/19 05:56 Dose: 1,000 mg Documented by: Bisacodyl (Dulcolax) 10 mg RECTAL UD PRN PRN Reason: If no BM Heparin Sodium (Porcine) (Heparin Na) 5,000 unit SC Q12 [facility] Last Admin: 10/24/19 01:29 Dose: 5,000 unit Documented by: Hydrocortisone (Hytone) 1 applic TOPICAL TID PRN PRN; Protocol PRN Reason: Discomfort Lactated Ringer's () 1,000 mls @ 100 mls/hr IV .Q10H [facility] Last Admin: 10/24/19 05:52 Dose: Not Given Documented by: Naloxone HCl 4 mg/ Dextrose 504 mls @ 0 mls/hr IV .Q0M PRN; Protocol PRN Reason: Respiratory depression Ibuprofen (Motrin) 600 mg PO Q6 [facility] Ketorolac Tromethamine (Toradol (Bkc)) 30 mg IV Q6 [facility] Stop: 10/28/19 17:31 Last Admin: 10/24/19 05:52 Dose: 30 mg Documented by: Methylergonovine Maleate (Methergine) 0.2 mg IM X1 PRN PRN Reason: Uterine Atony Naloxone HCl (Narcan) 0.02 mg IV Q1M PRN PRN Reason: RR <10 and pt unresponsive Ondansetron HCl (Zofran) 4 mg IV Q4H PRN PRN PRN Reason: Nausea Oxycodone HCl (Oxyir) 5 - 10 mg PO Q4H PRN PRN PRN Reason: Pain Score 4-10/10 Prochlorperazine Edisylate (Compazine Iv) 10 mg IV Q6H PRN PRN PRN Reason: NAUSEA Senna/Docusate Sodium (Senokot-S, Dina-Colace) 0 tablet PO DAILY [facility] Simethicone (Mylicon) 80 mg PO PCHS PRN PRN Reason: Indigestion/stomach pain Last Admin: 10/24/19 01:29 Dose: 80 mg Documented by: Sodium Chloride () 5 - 15 ml IV PRN PRN PRN Reason: SALINE FLUSH Last Admin: 10/24/19 05:53 Dose: 10 ml Documented by: Medical Necessity - Tobacco Use Smoking Status: Never smoker Assessment/Plan All Active Problems (Last Updated 10/23/19 @ 01:[address] Marianela Hoyos MD) delivery delivered (Acute) 39 weeks gestation of (Acute) Request for sterilization (Acute) COVID-19 affecting in third trimester (Acute) This is a 28 year-old, G [2], P [2002], POD#1 s/p RLTCS with bilateral salpingectomy doing well. -COVID19 positive - sx resolved > 72h prior to hospitalization. Maintain DVT ppx -Routine postop care -Meets discharge criteria, however pt considering discharge to home tomorrow.
--- NOTE | 2019-10-24 08:50 | PCM.DCCSEC ---
Discharge Diet: No Restrictions Discharge Activity: Return to Normal Activity, May not drive while taking narcotic pain medications., May Shower, - - No tub bath for 2 weeks May resume sexual activity in: 4-6 weeks Lifting Restrictions: 10-20 lb Call your doctor if your incision/area has: Continuous Slow Oozing, Sudden Increased Bleeding, Increased Pain/ Swelling, Increased Redness, Foul Smelling Discharge Call your doctor if you observe: Fever of 101 or Higher, Inability to urinate, Inability to have a bowel movement, Using more than one pad per hour, Shortness of breath, Chest pain, Calf discomfort, Uncontrolled pain Suture Line Care: Avoid Pulling/Pushing Remove Dressing in (days):: 4 Cleanse incision/area with: Soap & Water Additional Instructions: If you experience any of the following, contact your healthcare provider. Bleeding that soaks a pad every hour for 2 hours Fever 100.4 or higher Unrelieved incision or abdominal pain Swelling, redness, discharge or bleeding from your incision or episiotomy site Your incision begins to separate Problems urinating (including inability to urinate or burning while urinating). Visual changes Severe headache Flu-like symptoms Pain or redness in one of both of your breasts Pain, warmth, tenderness or swelling in your legs, especially the calf area Frequent nausea and vomiting Symptoms of depression or anxiety If you experience any of the following, call 911 or go to the nearest Emergency Room. Chest pain Problems breathing Seizure activity Partial or complete paralysis of a body part, slurred speech, weakness or drooping of the face, or a sudden inability to walk or hold your balance Allergies/Adverse Reactions: Allergies No Known Allergies Allergy (Verified 07/25/17 05:51) Medications to take at Discharge Loratadine [Claritin] 10 mg PO BID 07/25/17 Ibuprofen [Motrin] 600 mg PO TID PRN #30 tab 10/24/19 Oxycodone [Oxyir] 1 tab PO Q6H PRN 7 Days #20 tablet 10/24/19 The following prescriptions were given: Ibuprofen [Motrin] 600 mg PO TID PRN #30 tab PRN Reason: pain Transmission Status: Pending to [facility] [id number] Oxycodone [Oxyir] 1 tab PO Q6H PRN 7 Days #20 tablet PRN Reason: Pain Score 4-10/10 Transmission Status: Sent to [facility] [id number] Follow-Up: Call to make an appointment with your doctor for an incision check in 1-2 weeks. You will also need a 6 week post- follow up appointment. Test results from this visit will be discussed in further detail at your follow-up appointment, if applicable. Please Follow Up With: Marianela Dos Santos MD When: 2 weeks Primary Care Physician: Care Physician,No Primary [Primary Care Provider] -
[2019-10-24] MEDS: Senna/Docusate Sodium 1 Tablet PO (10:03)
[2019-10-24 11:00] VITALS: BP 103/77; PULSE 98; RESP 16; TEMP 36.6; O2SAT 99
[2019-10-24 16:21] VITALS: BP 111/66; PULSE 78; RESP 16; TEMP 37.1; O2SAT 100
[2019-10-24] MEDS: Ondansetron 4 MG/2 ML Vial IV (17:20)
[2019-10-24 17:49] VITALS: BP 111/66; PULSE 78; RESP 16; TEMP 37.1; O2SAT 100
== END 2019-10-24 17:45 | disposition home or self-care (01) | DRG 783 ==
PROVIDERS: Admitting Provider Obstetrics & Gynecology; Referring Provider Obstetrics & Gynecology; Visit Provider Obstetrics & Gynecology
PROC: 10D00Z1 Extraction of Products of Conception, Low, Open Approach (ICD-10-PCS; CPT 59514; principal; 2019-10-23 11:45)
DX: O98.52 Other viral diseases complicating childbirth (principal); U07.1 COVID-19; O69.81X0 Labor and delivery complicated by cord around neck, without compression, not applicable or unspecified; Z3A.39 39 weeks gestation of pregnancy; Z37.0 Single live birth
CPT/HCPCS: 85025; 85027; 86850; 86900; 86901; 88302; 88307; 99218; J7120; A4216; G0378; J2405

== ENCOUNTER → 2021-08-24 | Outpatient (CLI) | payer OTHER, SELFPAY ==
[2021-08-31 16:50] LABS: HPV APTIMA, High Risk Negative (Negative)
== END | disposition home or self-care (01) ==
LOC: LABSPEC 13:43
PROVIDERS: Visit Provider Obstetrics & Gynecology
DX: Z12.4 Encounter for screening for malignant neoplasm of cervix (principal)
CPT/HCPCS: 87624; 88175; G0145